=== PATIENT | female | born 1965 | race Hispanic/Latino ===

== ENCOUNTER 2020-05-14 15:46 | Inpatient (IN) | payer BC ==
[~2020-05-14] VITALS: Ht 162.6 cm; Wt 82.6 kg
[2020-05-14 17:14] LABS: BASOPHILS % 0.4 % (0.0-1.0); EOSINOPHILS % 0.2 % (0.0-6.0); HEMATOCRIT 41.1 % (34.2-44.1); HEMOGLOBIN 14.1 g/dL (12.0-16.0); LYMPHOCYTES # (AUTO) 1.4 (1.0-3.2); LYMPHOCYTES % 12.8 % (18.0-39.1); MEAN CORPUSCULAR HGB CONC 34.3 g/dL (31-35); MEAN CORPUSCULAR VOLUME 84.4 fL (81-99); MONOCYTES # (AUTO) 0.9 (0.2-0.8); MONOCYTES % 8.2 % (4.4-11.3); NEUTROPHILS # (AUTO) 8.4 (2.1-6.9); NEUTROPHILS % 77.9 % (38.7-80.0); PLATELET COUNT 245 x10e3/uL (140-360); RED BLOOD COUNT 4.87 x10e6/uL (3.6-5.1); RED CELL DISTRIBUTION WIDTH 13.2 % (11.7-14.4)
[2020-05-14 17:22] LABS: CLARITY,URINE CLEAR (CLEAR); COLOR,URINE YELLOW (YELLOW); LEUKOCYTE ESTERASE ,URINE NEGATIVE (NEGATIVE); NITRITE,URINE NEGATIVE (NEGATIVE); PROTEIN,URINE DIPSTICK 1+ (NEGATIVE)
[2020-05-14 17:23] LABS: BILIRUBIN,URINE LARGE (NEGATIVE); KETONES,URINE TRACE (NEGATIVE); URINE UROBILINOGEN 1 mg/dL (0.2 - 1)
[2020-05-14 17:25] LABS: BACTERIA,URINE FEW /HPF; EPITHELIAL CELLS,URINE MODERATE /LPF; MUCUS,URINE FEW (RARE)
[2020-05-14 17:33] LABS: ALANINE AMINOTRANSFERASE 603 IU/L (0-55); ALBUMIN 4.2 g/dL (3.5-5.0); ALBUMIN/GLOBULIN RATIO 1.1 (0.8-2.0); ALKALINE PHOSPHATASE 118 IU/L (40-150); AMYLASE 62 U/L (25-125); ANION GAP 17.3 mmol/L (8-16); BLOOD UREA NITROGEN 11 mg/dL (7-26); BUN/CREATININE RATIO 13 (6-25); CALCIUM 10.1 mg/dL (8.4-10.2); CARBON DIOXIDE 23 mmol/L (22-29); CHLORIDE 101 mmol/L (98-107); CREATININE, SERUM 0.88 mg/dL (0.57-1.11); EST GLOMERULAR FILTRATION RATE > 60 ML/MIN (60-); GLUCOSE 124 mg/dL (74-118); LIPASE 25 U/L (8-78); POTASSIUM 3.3 mmol/L (3.5-5.1); SODIUM 138 mmol/L (136-145)
--- NOTE | 2020-05-14 17:53 | Emergency Department Note ---
History of Present Illnes History of Present Illness Chief Complaint: Abdominal Complaints History of Present Illness This is a 55 year old female Chief Complaint Comment DIFFUSE ABD PAIN. SAW DR Aurora TAVAREZ TODAY AND SENT TO ER "FOR A SCAN." PT AAOX4. AMBULATORY. STATES PAIN STARTED THURSDAY AND YESTERDAY "MUCHO" VOMIT, BUT TODAY ONLY ONCE. NO FEVERS. NO DIARRHEA. EQUIP MAINT ENG COMPUTER USED #[id number]. . Historian: Patient Arrival Mode: Car Onset (how long ago): day(s) (2) Location: EPIGASTRIC Quality: DULL Radiation: Denies non-radiation, Denies back, Denies neck, Denies extremity, Denies abdomen, Denies periumbilical, Denies flank, Denies proximal, Denies distal, Denies other Severity: moderate Onset quality: gradual Duration (how long): day(s) (1) Timing of current episode: constant Progression: waxing and waning Chronicity: new Context: Denies recent illness, Denies recent surgery, Denies recent immobilization, Denies recent travel, Denies trauma/injury, Denies new medications, Denies hx of DVT/PE, Denies non-compliance w/ medications, Denies other Relieving factors: none Exacerbating factors: none Associated symptoms: Denies denies other symptoms, Denies confusion, Denies chest pain, Denies cough, Denies diaphoresis, Denies fever/chills, Denies headaches, Denies loss of appetite, Denies malaise, Denies nausea/vomiting, Denies rash, Denies seizure, Denies shortness of breath, Denies syncope, Denies weakness, Denies other Treatments prior to arrival: none (SCOTTIE CASILLAS MD) Past Medical/Family History Physician Review I have reviewed the patient's past medical and family history. Any updates have been documented here. (SCOTTIE CASILLAS MD) Past Medical History Recent Fever: No Clinical Suspicion of Infectio: No New/Unexplained Change in Ment: No Past Medical History: Hypertension Past Surgical History: Hysterectomy, Tubal Ligation, Other Surgery: THYROID (SCOTTIE CASILLAS MD) Social History Smoking Cessation: Never Smoker Counseling Performed: No Alcohol Use: None Any Illegal Drug Use: No Physically hurt or threatened: No (SCOTTIE CASILLAS MD) Other Any Pre-Existing Lines (PICC,: No (SCOTTIE CASILLAS MD) Review of Systems Review of Systems Constitutional: Reports no symptoms EENTM: Reports no symptoms Cardiovascular: Reports no symptoms Respiratory: Reports no symptoms Gastrointestinal: Reports as per HPI Genitourinary: Reports no symptoms Musculoskeletal: Reports no symptoms Integumentary: Reports no symptoms Neurological: Reports no symptoms Psychological: Reports no symptoms Endocrine: Reports no symptoms Hematological/Lymphatic: Reports no symptoms (SCOTTIE CASILLAS MD) Physical Exam Related Data Allergies: Coded Allergies: No Known Allergies (Unverified , 05/14/20) Triage Vital Signs Vital Signs Date Time Temp Pulse Resp B/P (MAP) Pulse Ox O2 Delivery O2 Flow Rate FiO2 05/14/20 16:12 98.6 84 16 157/94 100 Room Air Vital signs reviewed: Yes (SCOTTIE CASILLAS MD) Physical Exam CONSTITUTIONAL Constitutional: Present well-developed, Present well-nourished HENT HENT: Present normocephalic, Present atraumatic, Present oropharynx clear/moist, Present nose normal HENT L/R: Present left ext ear normal, Present right ext ear normal EYES Eyes: Reports PERRL, Reports conjunctivae normal NECK Neck: Present ROM normal PULMONARY Pulmonary: Present effort normal, Present breath sounds normal CARDIOVASCULAR Cardiovascular: Present regular rhythm, Present heart sounds normal, Present capillary refill normal, Present normal rate GASTROINTESTINAL Abdominal: Present soft, Present bowel sounds normal, Present tender (EPIGA STRIC) GENITOURINARY Genitourinary: Present exam deferred SKIN Skin: Present warm, Present dry MUSCULOSKELETAL Musculoskeletal: Present ROM normal NEUROLOGICAL Neurological: Present alert, Present oriented x 3, Present no gross motor or sensory deficits PSYCHOLOGICAL Psychological: Present mood/affect normal, Present judgement normal (SCOTTIE CASILLAS MD) Results Laboratory Result Diagram: 05/14/20 1617 05/14/20 1617 Laboratory Laboratory Tests Test 05/14/20 16:17 White Blood Count 10.80 x10e3/uL (4.8-10.8) Red Blood Count 4.87 x10e6/uL (3.6-5.1) Hemoglobin 14.1 g/dL (12.0-16.0) Hematocrit 41.1 % (34.2-44.1) Mean Corpuscular Volume 84.4 fL (81-99) Mean Corpuscular Hemoglobin 29.0 pg (28-32) Mean Corpuscular Hemoglobin Concent 34.3 g/dL (31-35) Red Cell Distribution Width 13.2 % (11.7-14.4) Platelet Count 245 x10e3/uL (140-360) Neutrophils (%) (Auto) 77.9 % (38.7-80.0) Lymphocytes (%) (Auto) 12.8 % (18.0-39.1) Monocytes (%) (Auto) 8.2 % (4.4-11.3) Eosinophils (%) (Auto) 0.2 % (0.0-6.0) Basophils (%) (Auto) 0.4 % (0.0-1.0) Neutrophils # (Auto) 8.4 (2.1-6.9) Lymphocytes # (Auto) 1.4 (1.0-3.2) Monocytes # (Auto) 0.9 (0.2-0.8) Eosinophils # (Auto) 0.0 (0.0-0.4) Basophils # (Auto) 0.0 (0.0-0.1) Absolute Immature Granulocyte (auto 0.05 x10e3/uL (0-0.1) Urine Color Yellow (YELLOW) Urine Clarity Clear (CLEAR) Urine pH 6 (5 - 7) Urine Specific [place] 1.015 (1.010-1.025) Urine Protein 1+ (NEGATIVE) Urine Glucose (UA) Negative (NEGATIVE) Urine Ketones Trace (NEGATIVE) Urine Blood Trace (NEGATIVE) Urine Nitrite Negative (NEGATIVE) Urine Bilirubin Large (NEGATIVE) Urine Urobilinogen 1 mg/dL (0.2 - 1) Urine Leukocyte Esterase Negative (NEGATIVE) Urine RBC 6-10 /HPF (0-5) Urine WBC 6-10 /HPF (0-5) Urine Epithelial Cells Moderate /LPF (NONE) Urine Bacteria Few /HPF (NONE) Urine Mucus Few (RARE) Sodium Level 138 mmol/L (136-145) Potassium Level 3.3 mmol/L (3.5-5.1) Chloride Level 101 mmol/L (98-107) Carbon Dioxide Level 23 mmol/L (22-29) Anion Gap 17.3 mmol/L (8-16) Blood Urea Nitrogen 11 mg/dL (7-26) Creatinine 0.88 mg/dL (0.57-1.11) Estimat Glomerular Filtration Rate > 60 ML/MIN (60-) BUN/Creatinine Ratio 13 (6-25) Glucose Level 124 mg/dL (74-118) Calcium Level 10.1 mg/dL (8.4-10.2) Total Bilirubin 4.8 mg/dL (0.2-1.2) Aspartate Amino Transf (AST/SGOT) 571 IU/L (5-34) Alanine Aminotransferase (ALT/SGPT) 603 IU/L (0-55) Alkaline Phosphatase 118 IU/L (40-150) Total Protein 8.2 g/dL (6.5-8.1) Albumin 4.2 g/dL (3.5-5.0) Globulin 4.0 g/dL (2.3-3.5) Albumin/Globulin Ratio 1.1 (0.8-2.0) Amylase Level 62 U/L (25-125) Lipase 25 U/L (8-78) Lab results reviewed: Yes (SCOTTIE CASILLAS MD) Imaging Imaging results reviewed: Yes (SCOTTIE CASILLAS MD) Imaging results reviewed: Yes Impressions Procedure: [id number] CT/CT ABDOMEN/PELVIS W Exam Date: 05/14/20 Exam Time: 1800 REPORT STATUS: Signed EXAM: CT Abdomen and Pelvis WITH contrast INDICATION: Abdominal pain. COMPARISON: Same day ultrasound of the abdomen. TECHNIQUE: Abdomen and pelvis were scanned utilizing a multidetector helical scanner from the lung base to the pubic symphysis after administration of IV contrast. Coronal and sagittal reformations were obtained. Routine protocol was performed. Scan was performed when during portal venous phase. IV CONTRAST: 100 mL of Isovue 370 ORAL CONTRAST: None COMPLICATIONS: None RADIATION DOSE: Total DLP: 609.80 mGy*cm Estimated effective dose: (DLP x 0.015 x size factor) mSv CTDIvol has been reviewed. It is below the limits set by the Radiation Protocol Committee (RPC). Dose modulation, iterative reconstruction, and/or weight based adjustment of the mA/kV was utilized to reduce the radiation dose to as low as reasonably achievable. FINDINGS: LINES and TUBES: None. LOWER THORAX: Unremarkable HEPATOBILIARY: Diffusely hypodense parenchyma. No focal hepatic lesions. No biliary ductal dilation. GALLBLADDER: There is a large gallstone which measures approximately 3.1 x 2.2 cm within the body of the gallbladder. The additional stone seen on recent ultrasound is not visualized by CT. No wall thickening. SPLEEN: No splenomegaly. PANCREAS: No focal masses or ductal dilatation. ADRENALS: No adrenal nodules. KIDNEYS/URETERS: Kidneys enhance symmetrically. No hydronephrosis. No cystic or solid mass lesions. No stones. GI TRACT: There is diverticulosis coli without evidence of active inflammation. No abnormal distention, wall thickening, or evidence of bowel obstruction. Appendix is normal. PELVIC ORGANS/BLADDER: Unremarkable. LYMPH NODES: No lymphadenopathy. VESSELS: Unremarkable. PERITONEUM / RETROPERITONEUM: No free air or fluid. BONES: Unremarkable. SOFT TISSUES: Unremarkable. IMPRESSION: 1. Cholelithiasis without evidence of cholecystitis. 2. Hepatic steatosis. 3. Diverticulosis coli without evidence of active inflammation. Signed by: Rosalinda De La Garza MD on 05/14/2020 7:35 PM Dictated By: ROSALINDA DE LA GARZA MD 34 Transcribed By: ZULEMA on 05/14/201934 COPY TO: SCOTTIE CASILLAS MD~ (ELIDA LEIGH MD) Assessment & Plan Medical Decision Making MDM GALL STONES GASTRITIS APPENDICITIS (SCOTTIE CASILLAS MD) MDM I SPOKE WITH DR DALY, DR Aurora TAVAREZ, AND DR RIVERA, ADMIT INPATIENT (ELIDA LEIGH MD) Assessment & Plan Final Impression: (1) Abdominal pain (SCOTTIE CASILLAS MD) Final Impression: (1) Abdominal pain (2) Biliary calculus with obstruction without cholecystitis (ELIDA LEIGH MD) Depart Disposition: ADMITTED Last Vital Signs Date Time Temp Pulse Resp B/P (MAP) Pulse Ox O2 Delivery O2 Flow Rate FiO2 05/14/20 16:12 98.6 84 16 157/94 100 Room Air (SCOTTIE CASILLAS MD) SCOTTIE CASILLAS MD May 14, 2020 17:53 ELIDA LEIGH MD May 14, 2020 20:07
[2020-05-14] MEDS ORDERED: IOPAMIDOL 370 MG/ML 200 ML INFUS..BTL INJ ONE (18:06)
[2020-05-14] MEDS ORDERED: SODIUM CHLORIDE 0.9% 50ML 50 ML ONE (18:06)
--- NOTE | 2020-05-14 18:31 | Diagnostic Imaging Report ---
EXAM: Right Upper Quadrant Ultrasound with Doppler INDICATION: Right upper quadrant abdominal pain. COMPARISON: None. TECHNIQUE: Transverse and longitudinal images of the right upper abdomen were obtained. Grayscale, color Doppler and spectral waveform analysis of the hepatic vasculature and splenic vein were performed. FINDINGS: Liver: Size: 12.1 cm in the right midclavicular line, normal Appearance: Normal echogenicity, smooth contour Mass: No focal masses Gallbladder: Stones/Sludge: There are 2 nonmobile tones within the gallbladder, one in the neck measuring 2.3 cm and the other in the fundus measuring 1.6 cm. Wall: 0.4 cm Appearance: No pericholecystic fluid or hydrops. Sonographic Parikh's Sign: Negative Bile Ducts: Intrahepatic Ducts: No dilatation Extrahepatic Ducts: Common bile duct measures 0.6 cm, no dilatation Pancreas: Visualized portions of the pancreatic head, neck and proximal body are normal. Right Kidney: Size: 10.6 x 4.9 x 5.2 cm Echogenicity: Normal Parenchymal thickness: Normal Collecting system: No hydronephrosis Stones: None Cyst/Mass: None Vessels: Main Portal Vein: Diameter: 0.9 cm, normal. Normal flow direction. Aorta: Visualized portions are normal Inferior Vena Cava: Visualized portions are normal Free Fluid: No ascites or pleural effusion IMPRESSION: Cholelithiasis without sonographic evidence of acute cholecystitis. Signed by: Tracie Asencio MD on 05/14/2020 6:27 PM
--- NOTE | 2020-05-14 19:39 | Diagnostic Imaging Report ---
EXAM: CT Abdomen and Pelvis WITH contrast INDICATION: Abdominal pain. COMPARISON: Same day ultrasound of the abdomen. TECHNIQUE: Abdomen and pelvis were scanned utilizing a multidetector helical scanner from the lung base to the pubic symphysis after administration of IV contrast. Coronal and sagittal reformations were obtained. Routine protocol was performed. Scan was performed when during portal venous phase. IV CONTRAST: 100 mL of Isovue 370 ORAL CONTRAST: None COMPLICATIONS: None RADIATION DOSE: Total DLP: 609.80 mGy*cm Estimated effective dose: (DLP x 0.015 x size factor) mSv CTDIvol has been reviewed. It is below the limits set by the Radiation Protocol Committee (RPC). Dose modulation, iterative reconstruction, and/or weight based adjustment of the mA/kV was utilized to reduce the radiation dose to as low as reasonably achievable. FINDINGS: LINES and TUBES: None. LOWER THORAX: Unremarkable HEPATOBILIARY: Diffusely hypodense parenchyma. No focal hepatic lesions. No biliary ductal dilation. GALLBLADDER: There is a large gallstone which measures approximately 3.1 x 2.2 cm within the body of the gallbladder. The additional stone seen on recent ultrasound is not visualized by CT. No wall thickening. SPLEEN: No splenomegaly. PANCREAS: No focal masses or ductal dilatation. ADRENALS: No adrenal nodules. KIDNEYS/URETERS: Kidneys enhance symmetrically. No hydronephrosis. No cystic or solid mass lesions. No stones. GI TRACT: There is diverticulosis coli without evidence of active inflammation. No abnormal distention, wall thickening, or evidence of bowel obstruction. Appendix is normal. PELVIC ORGANS/BLADDER: Unremarkable. LYMPH NODES: No lymphadenopathy. VESSELS: Unremarkable. PERITONEUM / RETROPERITONEUM: No free air or fluid. BONES: Unremarkable. SOFT TISSUES: Unremarkable. IMPRESSION: 1. Cholelithiasis without evidence of cholecystitis. 2. Hepatic steatosis. 3. Diverticulosis coli without evidence of active inflammation. Signed by: Tracie Asencio MD on 05/14/2020 7:35 PM
[2020-05-14] MEDS ORDERED: ONDANSETRON HCL INJ 2MG/ML 2ML 2 MG/ML VIAL IV PRN (20:15)
--- NOTE | 2020-05-14 20:30 | NUR ---
Pt admitted to room 213 via WC from home. Pt c/o worsening abdominal x4 days. Pt alert and oriented to name, hospital, time, and diagnosis: abd pain and biliary calculus. Pt ambulatory with steady gait. Pt skin warm and intact. Lungs CTA. Last BM 05/14. Denies dysuria, urine clear and yellow. Pt oriented to room, call light within reach. Bed low and locked.
[2020-05-14] MEDS ORDERED: PIPER-TAZ 3.375 GM / NS 50ML IV SCH (22:00)
[2020-05-14] MEDS ORDERED: BENICAR20 MG PO (23:52)
[2020-05-14 23:53] VITALS: BP 128/85
[2020-05-14 23:54] VITALS: BP 128/85
[2020-05-15] MEDS ORDERED: ACETAMINOPHEN 325 MG TAB PO PRN
[2020-05-15] MEDS ORDERED: METRONIDAZOLE 500MG/NS 100ML 100 ML IV SCH
[2020-05-15] MEDS ORDERED: POTASSIUM CHLORIDE 20MEQ/100ML 200 ML IV ONE
[2020-05-15] MEDS ORDERED: ONDANSETRON HCL INJ 2MG/ML 2ML 2 MG/ML VIAL IV PRN
[2020-05-15] MEDS ORDERED: HYDRALAZINE HCL 20 MG/ML VIAL IV PRN
[2020-05-15] MEDS ORDERED: MELATONIN 5 MG TABLET PO PRN
[2020-05-15] MEDS ORDERED: DOCUSATE SODIUM 100 MG CAP PO PRN
[2020-05-15] MEDS ORDERED: METRONIDAZOLE 500MG/NS 100ML IV SCH
[2020-05-15 00:49] VITALS: BP 132/83
[2020-05-15] MEDS: MORPHINE SULFATE INJ 4 MG/ML INJ 1ML IV PRN (01:15)
[2020-05-15 04:52] VITALS: BP 118/79
[2020-05-15 06:09] LABS: BASOPHILS % 0.2 % (0.0-1.0); EOSINOPHILS # (AUTO) 0.1 (0.0-0.4); EOSINOPHILS % 0.8 % (0.0-6.0); HEMATOCRIT 35.7 % (34.2-44.1); HEMOGLOBIN 12.7 g/dL (12.0-16.0); LYMPHOCYTES # (AUTO) 1.2 (1.0-3.2); LYMPHOCYTES % 14.7 % (18.0-39.1); MEAN CORPUSCULAR HEMOGLOBIN 30.7 pg (28-32); MEAN CORPUSCULAR HGB CONC 35.6 g/dL (31-35); MEAN CORPUSCULAR VOLUME 86.2 fL (81-99); MONOCYTES # (AUTO) 0.5 (0.2-0.8); MONOCYTES % 5.7 % (4.4-11.3); NEUTROPHILS # (AUTO) 6.6 (2.1-6.9); NEUTROPHILS % 78.2 % (38.7-80.0); PLATELET COUNT 187 x10e3/uL (140-360); RED BLOOD COUNT 4.14 x10e6/uL (3.6-5.1); RED CELL DISTRIBUTION WIDTH 13.2 % (11.7-14.4)
[2020-05-15 06:28] LABS: ALANINE AMINOTRANSFERASE 735 IU/L (0-55); ALBUMIN 3.4 g/dL (3.5-5.0); ALBUMIN/GLOBULIN RATIO 0.9 (0.8-2.0); ALKALINE PHOSPHATASE 113 IU/L (40-150); AMYLASE 2217 U/L (25-125); ANION GAP 13.6 mmol/L (8-16); BLOOD UREA NITROGEN 11 mg/dL (7-26); BUN/CREATININE RATIO 13 (6-25); CARBON DIOXIDE 26 mmol/L (22-29); CHLORIDE 104 mmol/L (98-107); CREATININE, SERUM 0.84 mg/dL (0.57-1.11); EST GLOMERULAR FILTRATION RATE > 60 ML/MIN (60-); GLUCOSE 135 mg/dL (74-118); POTASSIUM 3.6 mmol/L (3.5-5.1); SODIUM 140 mmol/L (136-145)
[2020-05-15] MEDS: PIPER-TAZ 3.375 GM 50 ML IV SCH ×4 (06:30→22:00)
--- NOTE | 2020-05-15 07:00 | NUR ---
The pt. is in bed awake at bedside rounding. She denies pain or discomfort at this time. She is maintained n p o for MRCP.
[2020-05-15 07:47] VITALS: BP 120/91
[2020-05-15 08:02] LABS: LIPASE 4669 U/L (8-78)
[2020-05-15 08:24] VITALS: BP 120/91
[2020-05-15] MEDS: SODIUM CHLORIDE 0.9% 1000ML 1,000 ML IV SCH ×3 (12:45→14:00)
[2020-05-15 13:34] VITALS: BP 122/78
--- NOTE | 2020-05-15 15:41 | Diagnostic Imaging Report ---
MRI MRCP WO HISTORY: ^ELEVATED LFTS COMPARISON: CT abdomen and pelvis 05/14/2020 TECHNIQUE: MRI of the abdomen with exam tailored to evaluate the biliary tree and the pancreas was performed without gadolinium contrast. Multiplanar, multisequence images, including heavily T2-weighted MRCP sequences were obtained. FINDINGS: Hepatobiliary Findings: Bile ducts: Normal in caliber with no intraluminal filling defects. No strictures or dilated intra- or extrahepatic bile ducts. Liver: Severe signal loss on opposed phase imaging. Gallbladder: A singular large gallstone at the gallbladder neck. Mild gallbladder wall thickening/pericholecystic fluid. Suggestion of some sludge or other debris at the fundus. Pancreas: No pancreatic mass identified. No pancreatic ductal dilation. No intrapancreatic fluid collection. There is some fat stranding and free fluid about the tail of the pancreas Additional Findings: Lung bases: Unremarkable. Spleen: Unremarkable Adrenals: Unremarkable Kidneys and ureters: Subcentimeter left renal cyst, otherwise unremarkable. Bowel: Unremarkable. Lymph nodes: Unremarkable. Peritoneum: Small ascites in the left half of the abdomen dependently Vessels: Unremarkable Abdominal wall: Pericentimeter cyst in the left breast. Bones: Unremarkable. IMPRESSION: 1. Cholelithiasis. No choledocholithiasis or any significant intra or extrahepatic biliary ductal dilation. Mild gallbladder wall thickening/mild pericholecystic fluid, could be related to cholecystitis versus chronic liver disease or a number of other causes of gallbladder wall thickening. 2. Severe hepatic steatosis. 3. Fat stranding about the tail of the pancreas and in the left half of the abdomen dependently, correlate with serum lipase for pancreatitis. No intrapancreatic fluid collection and no loculated fluid collections. Signed by: Marcial Vides MD on 05/15/2020 3:38 PM
[2020-05-15 15:56] VITALS: BP 111/68
--- NOTE | 2020-05-15 17:00 | NUR ---
Dr. Winkler rounded and the pt. is to be kept n p o due to pancreatitis.
[2020-05-15] MEDS ORDERED: SODIUM CHLORIDE 0.9% 250ML 250 ML ONE (21:07)
[2020-05-16] VITALS (7 sets, daily range): BP systolic 111–136; BP diastolic 71–84
[2020-05-16] MEDS: SODIUM CHLORIDE 0.9% 1000ML 1,000 ML IV SCH (00:21)
[2020-05-16] MEDS: ENOXAPARIN SOD INJ 40 MG/0.4 ML SYR SC SCH ×2 (00:21→16:41)
[2020-05-16] MEDS: LACTATED RINGER'S 1,000 ML INJ SCH ×5 (01:00→21:22)
--- NOTE | 2020-05-16 02:32 | History and Physical ---
The patient was seen and evaluated approximately 10:15 this morning with the nursing staff. CHIEF COMPLAINT: Elevated LFTs. HISTORY OF PRESENT ILLNESS: This is a 55-year-old female, who was sent then by her GI specialist as a direct admission due to elevated LFTs. The patient presented to the ER, noted to have elevated LFT and was admitted for further evaluation and management. GI was consulted. The patient reports having some mild epigastric abdominal pain ongoing for the last 4-5 days. She was found to have elevated LFTs and was told to come into the emergency room for further evaluation and management. The patient seen and evaluated at bedside, currently doing well with no other issues at this time. REVIEW OF SYSTEMS: Pertinent positives; epigastric abdominal pain, nausea. The rest of the 14-point review of systems have been reviewed with the patient and are negative. ALLERGIES: NO KNOWN DRUG ALLERGIES. HOME MEDICATIONS: Benicar 20 mg daily. PAST MEDICAL HISTORY: Hypertension. PAST SURGICAL HISTORY: Reports none. FAMILY HISTORY: Hypertension, diabetes. SOCIAL HISTORY: No drugs. No alcohol. Does not smoke. Good social support. She has children. PHYSICAL EXAMINATION: VITAL SIGNS: Temperature is 97.6, pulse 67, respiratory rate 20, blood pressure 111/60, pulse ox 97% on room air. GENERAL: Not in acute distress, alert and oriented x3. Cooperative on examination. HEENT: Head is normocephalic and atraumatic. Eyes; pupils are equal, round, and reactive to light bilaterally. Extraocular movements are intact bilaterally. Throat, no evidence of any erythema or exudates in the posterior pharynx. Has poor dentition. NECK: Supple. Good range of motion. PULMONARY: Clear to auscultation bilaterally. No wheezing, rales, or rhonchi. No crackles appreciated. CARDIOVASCULAR: Positive S1 and S2. No murmurs, rubs, or gallops appreciated. ABDOMEN: Soft, nondistended. She did have mild tender to palpation in the epigastric region. She does have positive bowel sounds. No rebound. No guarding. MUSCULOSKELETAL: Strength is 5/5 throughout. . No evidence of any muscle deficits on examination. No weakness appreciated. NEUROLOGIC: Cranial nerve II through XII grossly intact. No evidence of any neurological deficits on exam. SKIN: Intact. Warm to touch. Good cap refill. PSYCHIATRIC: Normal affect and mood. EXTREMITIES: No edema. Good range of motion throughout LABORATORY FINDINGS: White count 8.4, hemoglobin 12.7, hematocrit 35.7, platelets of 187. Chemistry; sodium 140, potassium 3.6, chloride 104, bicarb 26, anion gap of 13, BUN is 11, creatinine 0.84, glucose is 135, calcium is 9, total bilirubin is 5.7, AST 561, ALT 735, alk phos 113, total protein 7, albumin 3.4. Lipase level was 4669. Amylase level was 2217. Urinalysis noted to have a possible underlying UTI. Serology, coronavirus pending. Microbiology, none. IMAGING STUDIES: Abdominal ultrasound shows cholelithiasis without sonographic evidence of acute cholecystitis. CT abdomen and pelvis shows cholelithiasis without evidence of cholecystitis. Hepatic steatosis. Diverticulosis coli with no evidence of acute inflammation. MRCP performed shows cholelithiasis. No choledocholithiasis or any significant intra or extrahepatic biliary ductal dilatation. Mild gallbladder wall thickening, mild pericholecystic fluid, could be related to cholecystitis versus chronic liver disease or number of other causes with gallbladder wall thickening. Severe hepatic steatosis. Fat stranding about the tail of the pancreas in the left half of the abdomen dependently correlate with serum lipase and pancreatitis. The intrahepatic fluid collection and with no loculated fluid collection. IMPRESSION: 1. Elevated transaminases. 2. Acute pancreatitis. 3. Epigastric abdominal pain with associated nausea. 4. Hypertension. PLAN: At this time, imaging studies were noted. MRCP shows no evidence of choledocholithiasis. There is some concern for possible cholecystitis, which I will go ahead and discuss that with the GI specialist. I will go ahead and order a HIDA scan. Keep n.p.o., IV fluids, pain control. There is no evidence of any fluid around the pancreas or any kind of loculations. Resume same home medications. Get lipid panel, A1c, CBC, and CMP in the morning. Lovenox for DVT prophylaxis. Encourage ambulation. MD ADRIANA De Paz/ERMIAS /[id number]
[2020-05-16 04:59] LABS: BASOPHILS % 0.5 % (0.0-1.0); EOSINOPHILS # (AUTO) 0.2 (0.0-0.4); EOSINOPHILS % 2.5 % (0.0-6.0); HEMOGLOBIN 11.6 g/dL (12.0-16.0); LYMPHOCYTES # (AUTO) 1.8 (1.0-3.2); LYMPHOCYTES % 28.1 % (18.0-39.1); MEAN CORPUSCULAR HEMOGLOBIN 28.8 pg (28-32); MEAN CORPUSCULAR HGB CONC 33.1 g/dL (31-35); MEAN CORPUSCULAR VOLUME 86.8 fL (81-99); MONOCYTES # (AUTO) 0.4 (0.2-0.8); MONOCYTES % 6.3 % (4.4-11.3); NEUTROPHILS # (AUTO) 4.1 (2.1-6.9); NEUTROPHILS % 62.3 % (38.7-80.0); PLATELET COUNT 172 x10e3/uL (140-360); RED BLOOD COUNT 4.03 x10e6/uL (3.6-5.1); RED CELL DISTRIBUTION WIDTH 13.4 % (11.7-14.4)
[2020-05-16 05:20] LABS: ALANINE AMINOTRANSFERASE 512 IU/L (0-55); ALBUMIN 2.9 g/dL (3.5-5.0); ALBUMIN/GLOBULIN RATIO 0.9 (0.8-2.0); ALKALINE PHOSPHATASE 98 IU/L (40-150); AMYLASE 349 U/L (25-125); ANION GAP 12.6 mmol/L (8-16); BLOOD UREA NITROGEN 13 mg/dL (7-26); BUN/CREATININE RATIO 15 (6-25); CARBON DIOXIDE 24 mmol/L (22-29); CHLORIDE 112 mmol/L (98-107); CREATININE, SERUM 0.88 mg/dL (0.57-1.11); EST GLOMERULAR FILTRATION RATE > 60 ML/MIN (60-); GLUCOSE 83 mg/dL (74-118); POTASSIUM 3.6 mmol/L (3.5-5.1); SODIUM 145 mmol/L (136-145)
[2020-05-16] MEDS: PIPER-TAZ 3.375 GM 50 ML IV SCH ×3 (06:00→21:22)
[2020-05-16 06:26] LABS: CHOL/HDL RATIO 2.8 (3.0-3.6)
--- NOTE | 2020-05-16 07:20 | NUR ---
The pt. is in bed awake and alert. Denies pain or discomfort at this time. She is maintained n p o.
--- NOTE | 2020-05-16 16:30 | NUR ---
The pt. is out of the room for URIEL suggs.
[2020-05-16] MEDS: MORPHINE SULFATE INJ 4 MG/ML INJ 1ML IV PRN (18:30)
--- NOTE | 2020-05-16 18:32 | NUR ---
Nuc Med requests morphine for Hida scan completion and med given.
--- NOTE | 2020-05-16 18:33 | NUR ---
The pt. requests iv site change for convenience and attempt made unsuccessfully. Will defer to the oncoming shift.
--- NOTE | 2020-05-16 19:05 | NUR ---
The pt. returned to the unit from [facility].
--- NOTE | 2020-05-16 20:04 | Diagnostic Imaging Report ---
EXAM: HIDA Scan with Morphine Challenge INDICATION: Abdominal pain; elevated LFTs Report: Following the administration of 5.5 mCi of Tc-99m mebrofenin, dynamic images of the abdomen in the anterior projection were obtained through 60 minutes. Morphine sulfate 3 mg was administered intravenously and additional images were obtained through 30 minutes. Perfusion of the liver is normal. Extraction of tracer from the blood pool by the liver parenchyma is normal. Tracer appears promptly with in the biliary tract. Tracer is seen in the small bowel by 40 minutes post injection of the tracer. The gallbladder does not fill during the initial 60 minutes of imaging but does fill promptly following administration of morphine. Impression: 1. Filling of the gallbladder excludes acute cystic duct obstruction/acute cholecystitis. 2. Delayed filling of the gallbladder (after 1 hour) is consistent with chronic cholecystitis. Signed by: Dr. Bailey Russ M.D. on 05/16/2020 8:01 PM
--- NOTE | 2020-05-16 23:54 | NUR ---
Call from Dr Winkler, new orders received.
[2020-05-17] VITALS (7 sets, daily range): BP systolic 128–152; BP diastolic 72–85
--- NOTE | 2020-05-17 01:06 | Progress Note ---
DATE: 05/16/2020 Medicine Progress Note SUBJECTIVE: The patient was seen and evaluated at approximately 1:00 p.m. this afternoon. I spoke with GI, the patient to be scheduled for a cholecystectomy tomorrow. She will also get a cholangiogram tomorrow. PHYSICAL EXAMINATION: VITAL SIGNS: Temperature is 98.5, pulse 65, respiratory rate is 18, blood pressure 133/82, pulse ox 100% on room air. GENERAL: Not in acute distress. Alert and oriented x3. Cooperative on examination. HEENT: Head is normocephalic and atraumatic. Eyes; pupils are equal, round, and reactive to light bilaterally. Extraocular movements are intact bilaterally. Throat; no evidence of any erythema or exudates in the posterior pharynx. Has poor dentition. NECK: Supple. Good range of motion. PULMONARY: Clear to auscultation bilaterally. No wheezing, rales, or rhonchi. No crackles appreciated. CARDIOVASCULAR: Positive S1 and S2. No murmurs, rubs, or gallops appreciated. ABDOMEN: Soft, nondistended, and nontender to palpation. Bowel sounds present. MUSCULOSKELETAL: Strength is 5/5 throughout. No evidence of any muscle deficits on examination. NEUROLOGIC: Cranial nerves 2 through 12 grossly intact. No evidence of any neurological deficits on exam. SKIN: Intact. Warm to touch. Good cap refill. PSYCHIATRIC: Normal affect and mood. EXTREMITIES: No edema. Good range of motion throughout. LABORATORY FINDINGS: Show white count 6.5, hemoglobin 11.6, hematocrit 35, platelets of 172. Chemistry; sodium 145, potassium 3.6, chloride 112, bicarb 24, anion gap of 12, BUN is 13, creatinine is 0.88. Her total bilirubin is 1.5, AST 187, ALT 512, alkaline phosphatase 98, albumin was 2.9. The lipase did downtrend to 320. LDL was 90. Coronavirus is not detected. IMAGING STUDIES: Nothing new. IMPRESSION: 1. Elevated transaminases. 2. Acute pancreatitis. 3. Biliary dyskinesia with chronic cholecystitis. 4. Epigastric abdominal pain with associated nausea. 5. Hypertension. PLAN: At this time, I spoke with GI. The patient will get a laparoscopic cholecystectomy tomorrow with a cholangiogram. Continue with IV fluids, n.p.o., pain control. Get a.m. labs. Lovenox for DVT prophylaxis. We will continue to monitor very closely. MD ADRIANA De Paz/ERMIAS /[id number]
[2020-05-17] MEDS: LACTATED RINGER'S 1,000 ML INJ SCH ×2 (03:48→06:16)
[2020-05-17 06:10] LABS: BASOPHILS % 0.4 % (0.0-1.0); EOSINOPHILS # (AUTO) 0.1 (0.0-0.4); EOSINOPHILS % 1.2 % (0.0-6.0); HEMATOCRIT 32.3 % (34.2-44.1); HEMOGLOBIN 11.1 g/dL (12.0-16.0); LYMPHOCYTES # (AUTO) 1.9 (1.0-3.2); LYMPHOCYTES % 24.9 % (18.0-39.1); MEAN CORPUSCULAR HGB CONC 34.4 g/dL (31-35); MEAN CORPUSCULAR VOLUME 87.3 fL (81-99); MONOCYTES # (AUTO) 0.5 (0.2-0.8); MONOCYTES % 6.9 % (4.4-11.3); NEUTROPHILS # (AUTO) 4.9 (2.1-6.9); NEUTROPHILS % 66.3 % (38.7-80.0); PLATELET COUNT 161 x10e3/uL (140-360); RED CELL DISTRIBUTION WIDTH 13.2 % (11.7-14.4)
[2020-05-17] MEDS: PIPER-TAZ 3.375 GM 50 ML IV SCH ×3 (06:16→20:56)
[2020-05-17 06:37] LABS: ALANINE AMINOTRANSFERASE 337 IU/L (0-55); ALBUMIN 2.9 g/dL (3.5-5.0); ALBUMIN/GLOBULIN RATIO 0.9 (0.8-2.0); ALKALINE PHOSPHATASE 93 IU/L (40-150); ANION GAP 15.5 mmol/L (8-16); BLOOD UREA NITROGEN 11 mg/dL (7-26); BUN/CREATININE RATIO 15 (6-25); CALCIUM 8.9 mg/dL (8.4-10.2); CARBON DIOXIDE 21 mmol/L (22-29); CHLORIDE 110 mmol/L (98-107); CREATININE, SERUM 0.74 mg/dL (0.57-1.11); EST GLOMERULAR FILTRATION RATE > 60 ML/MIN (60-); GLUCOSE 76 mg/dL (74-118); POTASSIUM 3.5 mmol/L (3.5-5.1); SODIUM 143 mmol/L (136-145)
--- NOTE | 2020-05-17 06:46 | NUR ---
Received bedside shift report from night nurse. Patient is in stable condition, resting in bed. No acute distress noted. Call light within reach. Bed in the lowest position.
[2020-05-17 07:02] LABS: AMYLASE 111 U/L (25-125); LIPASE 69 U/L (8-78)
[2020-05-17] MEDS ORDERED: IOPAMIDOL 300MG/ML 50ML INFUS..BTL IV ONE (09:49)
[2020-05-17] MEDS ORDERED: BUPIVACAINE 0.25%/EPI 30ML SDV INJ ONE (09:49)
--- NOTE | 2020-05-17 11:20 | NUR ---
PATIENT OFF UNIT FOR PROCEDURE AT THIS TIME.
--- NOTE | 2020-05-17 14:08 | Diagnostic Imaging Report ---
OR Fluoroscopy: IMPRESSION: Fluoroscopy service provided in the OR. Interpretation not requested. Signed by: Tobi Garcia MD on 05/17/2020 2:05 PM
[2020-05-17] MEDS ORDERED: PANTOPRAZOLE 40 MG 10ML VIAL IV SCH (14:30)
[2020-05-17] MEDS ORDERED: ONDANSETRON HCL INJ 2MG/ML 2ML 2 MG/ML VIAL ONE (14:57)
[2020-05-17] MEDS ORDERED: NEOSTIGMINE 1 MG/ML 10ML VIAL ONE (14:57)
[2020-05-17] MEDS ORDERED: SEVOFLURANE INHAL SOLN 250 ML PEN BTL ONE (14:57)
[2020-05-17] MEDS ORDERED: LIDOCAINE HCL 2% LOCAL INJ 5 ML SDV VIAL INJ ONE (14:57)
[2020-05-17] MEDS ORDERED: DEXAMETHASONE SOD PHOS INJ 4 MG/ML VIAL ONE (14:57)
[2020-05-17] MEDS ORDERED: ETOMIDATE 2 MG/ML 10 ML INJ IV ONE (14:57)
[2020-05-17] MEDS ORDERED: GLYCOPYRROLATE INJ 0.2 MG/ML VIAL ONE (14:57)
[2020-05-17] MEDS ORDERED: PROPOFOL IV EMULSION 10 MG/ML 20 ML VIAL ONE (14:57)
[2020-05-17] MEDS ORDERED: ROCURONIUM BROMIDE 10 MG/ML 5ML VIAL IV ONE (14:57)
[2020-05-17] MEDS ORDERED: KETOROLAC TROMETHAMINE 30 MG/ML VIAL ONE (14:57)
--- NOTE | 2020-05-17 15:10 | NUR ---
PATIENT BACK TO UNIT AT THIS TIME. SHE IS IN STABLE CONDITION.
--- NOTE | 2020-05-17 15:39 | Operative Report ---
DATE OF PROCEDURE: 05/17/2020 SURGEON: Brett Winkler MD PREOPERATIVE DIAGNOSES: Cholecystitis, cholelithiasis, and gallstone pancreatitis, rule out common bile duct stone. POSTOPERATIVE DIAGNOSES: Cholecystitis, cholelithiasis, and gallstone pancreatitis, rule out common bile duct stone. No common bile duct stones. OPERATIONS PERFORMED: Laparoscopic cholecystectomy and intraoperative cholangiogram. SQUIRREL MAN: 1. Juanpablo Winkler MD. 2. KATE Sawyer. ANESTHESIA: General. COMPLICATIONS: None. ESTIMATED BLOOD LOSS: Minimal. DESCRIPTION OF PROCEDURE: With the patient lying in bed in the supine position under good general endotracheal anesthesia, the abdomen was prepped with Betadine solution and draped in the usual manner. A Veress needle was introduced into the umbilicus and pneumoperitoneum was established without any difficulty. An 11 mm trocar was placed into the umbilicus and a 10 mm video laparoscope was placed into the intraabdominal cavity. Under direct vision, three 5 mm trocars were placed in the right subcostal region. Video laparoscopy at this point, revealed a thick-walled distended gallbladder that had adhesions to the lower half, there was also some fatty infiltration of the liver. The rest of the abdominal exploration appeared to be within normal limits. The adhesions of the gallbladder were then slowly and carefully taken down, the peritoneum overlying the neck of the gallbladder was then opened, and the cystic duct was identified. The cystic duct was followed to its junction with the common duct. The cystic duct was then circumferentially dissected away from the common duct. The cystic duct was rather thickened and enlarged. A clip was placed at the neck of the gallbladder. An opening was made into the cystic duct, the cholangiogram catheter was then introduced into the cystic duct. Due to the large size of the cystic duct consistent with the patient having passed the stone, it was technically difficult to do the cholangiogram, nonetheless we managed to inject dye into the biliary tree and this show free flow dye into the duodenum. No retained common duct stones in the common duct. We could not well visualize the intrahepatic radicles, otherwise the common duct did not show any retained stones, which was consistent with the fact that the patient has liver function tests that quickly normalized over 24 hours. The cholangiocath was then removed. The cystic duct was divided and then ligated with 0 PDS Endoloop and a clip. The cystic artery was similarly doubly clipped and divided. The gallbladder was then slowly and carefully taken off the liver bed using the cautery scissors. There was a lot of fibrosis and inflammation from the chronic inflammatory process, nonetheless the gallbladder was totally taken off the liver bed and perfect hemostasis was ascertained. The gallbladder was then placed in a pouch and removed through the umbilicus after enlarging the umbilical opening to allow for passage of the inflamed gallbladder. Video laparoscopy was then again carried out, the liver bed was found to be perfectly dry, all of the excess fluid was aspirated. The pneumoperitoneum was evacuated, and all the trocars were removed under direct vision. The midline fascia at the umbilicus was then closed with 2 [id number] of 0 Vicryl. All layers were infiltrated on the way out with solution of 0.25% Marcaine, subcutaneous tissue was approximated with 3-0 Vicryl, and the skin was closed with subcuticular 5-0 Vicryl. Benzoin, Steri-Strips, and Band-Aids were applied. The sponge, lap, and needle counts were correct. The patient tolerated the procedure well and returned to the recovery room in stable condition. MD HAYDEN Jackson/ERMIAS /[id number]
[2020-05-17] MEDS: SODIUM CHLORIDE 0.9% 1000ML 1,000 ML IV SCH (16:12)
[2020-05-17] MEDS: HYDROCODONE/APAP 7.5MG-325MG 1 EA TAB PO PRN (16:19)
--- NOTE | 2020-05-17 19:00 | NUR ---
BEDSIDE SHIFT REPORT GIVEN TO ONCOMING NURSE. PATIENT IS RESTING IN BED, NO S/S OF DISTRESS NOTED. CALL LIGHT WITHIN REACH. BED IN THE LOWEST POSITION.
[2020-05-17] MEDS: MORPHINE SULFATE INJ 4 MG/ML INJ 1ML IV PRN (20:56)
[2020-05-18] VITALS: BP 117/80
--- NOTE | 2020-05-18 00:16 | Progress Note ---
DATE: 05/17/2020 Medicine Progress Note SUBJECTIVE: The patient underwent laparoscopic cholecystectomy. When I came to evaluate her, she was not there, she was in the OR. PHYSICAL EXAMINATION: VITAL SIGNS: Temperature is 97.2, pulse 74, respiratory rate is 18, blood pressure 109/68. She was 98% on room air. The patient was in the OR when I came to evaluate her. I discussed plan of care with nursing staff. LABORATORY DATA: White count 7.4, hemoglobin 11, hematocrit 32, platelets of 161. Chemistry; sodium 143, potassium 3.5, chloride 110, bicarb 29, anion gap of 15, BUN is 11, creatinine is 0.74. LFTs; total bilirubin is 1, AST 72, ALT was 337. IMAGING STUDIES: Had a cholangiogram under fluoro. I did not see the report. IMPRESSION: 1. Elevated transaminases. 2. Acute pancreatitis. 3. Biliary dyskinesia with chronic cholecystitis. 4. Epigastric abdominal pain with associated nausea. 5. Hypertension. PLAN: At this time, the patient was in the OR, receiving a laparoscopic cholecystectomy. She is also getting a cholangiogram. I spoke with the nurse after the procedure. The patient is doing well with no complaints. She is on a liquid diet. Continue to follow very closely. Get a.m. labs. Follow with the rest of the consultants. MD ADRIANA De Paz/ERMIAS /[id number]
[2020-05-18 04:00] VITALS: BP 133/75
[2020-05-18 05:00] LABS: BASOPHILS % 0.4 % (0.0-1.0); EOSINOPHILS # (AUTO) 0.1 (0.0-0.4); EOSINOPHILS % 0.6 % (0.0-6.0); HEMATOCRIT 31.5 % (34.2-44.1); HEMOGLOBIN 10.7 g/dL (12.0-16.0); LYMPHOCYTES # (AUTO) 2.2 (1.0-3.2); LYMPHOCYTES % 20.4 % (18.0-39.1); MEAN CORPUSCULAR HEMOGLOBIN 29.1 pg (28-32); MEAN CORPUSCULAR VOLUME 85.6 fL (81-99); MONOCYTES # (AUTO) 0.9 (0.2-0.8); MONOCYTES % 7.9 % (4.4-11.3); NEUTROPHILS # (AUTO) 7.6 (2.1-6.9); NEUTROPHILS % 70.2 % (38.7-80.0); PLATELET COUNT 155 x10e3/uL (140-360); RED BLOOD COUNT 3.68 x10e6/uL (3.6-5.1); RED CELL DISTRIBUTION WIDTH 13.3 % (11.7-14.4)
[2020-05-18 05:20] LABS: ALANINE AMINOTRANSFERASE 286 IU/L (0-55); ALBUMIN 2.8 g/dL (3.5-5.0); ALBUMIN/GLOBULIN RATIO 0.8 (0.8-2.0); ALKALINE PHOSPHATASE 82 IU/L (40-150); AMYLASE 48 U/L (25-125); ANION GAP 12.6 mmol/L (8-16); BLOOD UREA NITROGEN 9 mg/dL (7-26); BUN/CREATININE RATIO 11 (6-25); CARBON DIOXIDE 22 mmol/L (22-29); CHLORIDE 110 mmol/L (98-107); CREATININE, SERUM 0.79 mg/dL (0.57-1.11); EST GLOMERULAR FILTRATION RATE > 60 ML/MIN (60-); GLUCOSE 101 mg/dL (74-118); POTASSIUM 3.6 mmol/L (3.5-5.1); SODIUM 141 mmol/L (136-145)
[2020-05-18] MEDS: HYDROCODONE/APAP 7.5MG-325MG 1 EA TAB PO PRN (05:45)
[2020-05-18] MEDS: PIPER-TAZ 3.375 GM 50 ML IV SCH (06:02)
[2020-05-18] MEDS: SODIUM CHLORIDE 0.9% 1000ML 1,000 ML IV SCH ×2 (06:02→10:30)
[2020-05-18 08:00] VITALS: BP 128/78
[2020-05-18 08:55] VITALS: BP 133/75
[2020-05-18 12:00] VITALS: BP 144/95
[2020-05-18] MEDS ORDERED: ULTRAM50 MG PO (14:29)
--- OUTSIDE RECORDS SUMMARY | 2020-05-18 18:58 | XMS REPORT | Continuity of Care Document ---
Author Author [facility] Organization [facility] Address [address] [place] [address] Phone Unavailable Care Team Providers Care Baggage Agent Name Role Phone Henna DALY Attphys Unavailable Henna DALY Admphys Unavailable Problems This patient has no known problems. Allergies, Adverse Reactions, Alerts This patient has no known allergies or adverse reactions. Medications This patient has no known medications. Procedures This patient has no known procedures. Encounters Start Date/Time End Date/Time [facility] ID Source 2019-10-05 15:57:00 2019-10-05 15:57:00 Outpatient [facility] [address] [facility] Results Test Description Test Time Test Comments Results Result Comments Source CHOLANGIOGRAM INTROP 2020-05-17 14:05:00 [place] [address] Patient Name: RADHA CORTEZ MR #: [id number] : 1965 Age/Sex: 55/F Req #: [id number] [facility] Physician: JOSE DALY MD Ordered by: CLIFFORD DUONG MD Report #: [id number] Location: MED/SURG2 Room/Bed: [facility] Procedure: [id number] DX/CHOLANGIOGRAM INTROP Exam Date: 05/17/20 Exam Time: 1236 REPORT STATUS: Signed OR Fluoroscopy: IMPRESSION: Fluoroscopy service provided in the OR. Interpretation not requested. Signed by: Elias Shah MD on 05/17/2020 2:05 PM Dictated By: ELIAS SHAH MD 04 Transcribed By: ZULEMA on 05/17/201404 COPY TO: CLIFFORD DUONG MD HEPTOBILIARY W PHARM 2020-05-16 19:56:00 [place] [address] Patient Name: RADHA CORTEZ MR #: [id number] : 1965 Age/Sex: 55/F Req #: [id number] [facility] Physician: JOSE DALY MD Ordered by: JOSE DALY MD Report #: [id number] Location: MED/SURG2 Room/Bed: [facility] Procedure: [id number] NM/HEPTOBILIARY W PHARM Exam Date: Exam Time: REPORT STATUS: Signed EXAM: HIDA Scan with Morphine Challenge INDICATION: Abdominal pain; elevated LFTs Report: Following the administration of 5.5 mCi of Tc-99m mebrofenin, dynamic images of the abdomen in the anterior projection were obtained through 60 minutes. Morphine sulfate 3 mg was administered intravenously and additional images were obtained through 30 minutes. Perfusion of the liver is normal. Extraction of tracer from the blood pool by the liver parenchyma is normal. Tracer appears promptly with in the biliary tract. Tracer is seen in the small bowel by 40 minutes post injection of the tracer. The gallbladder does not fill during the initial 60 minutes of imaging but does fill promptly following administration of morphine. Impression: 1. Filling of the gallbladder excludes acute cystic duct obstruction/acute cholecystitis. 2. Delayed filling of the gallbladder (after 1 hour) is consistent with chronic cholecystitis. Signed by: Dr. Freeman Russ M.D. on 05/16/2020 8:01 PM Dictated By: FREEMAN RUSS MD 00 Transcribed By: ZULEMA on 05/16/202000 COPY TO: JOSE DALY MD MRI MRCP WO 2020-05-15 14:36:00 [place] [address] Patient Name: RADHA CORTEZ MR #: [id number] : 1965 Age/Sex: 55/F Req #: [id number] Adm Physician: JOSE DALY MD Ordered by: JOSE DALY MD Report #: [id number] Location: MED/SURG2 Room/Bed: [facility] Procedure: [id number] MRI/MRI MRCP WO Exam Date: Exam Time: REPORT STATUS: Signed MRI MRCP WO HISTORY: ELEVATED LFTS COMPARISON: CT abdomen and pelvis 05/14/2020 TECHNIQUE: MRI of the abdomen with exam tailored to evaluate the biliary tree and the pancreas was performed without gadolinium contrast. Multiplanar, multisequence images, including heavily T2-weighted MRCP sequences were obtained. FINDINGS: Hepatobiliary Findings: Bile ducts: Normal in caliber with no intraluminal filling defects. No strictures or dilated intra- or extrahepatic bile ducts. Liver: Severe signal loss on opposed phase imaging. Gallbladder: A singular large gallstone at the gallbladder neck. Mild gallbladder wall thickening/pericholecystic fluid. Suggestion of some sludge or other debris at the fundus. Pancreas: No pancreatic mass identified. No pancreatic ductal dilation. No intrapancreatic fluid collection. There is some fat stranding and free fluid about the tail of the pancreas Additional Findings: Lung bases: Unremarkable. Spleen: Unremarkable Adrenals: Unremarkable Kidneys and ureters: Subcentimeter left renal cyst, otherwise unremarkable. Bowel: Unremarkable. Lymph nodes: Unremarkable. Peritoneum: Small ascites in the left half of the abdomen dependently Vessels: Unremarkable Abdominal wall: Pericentimeter cyst in the left breast. Bones: Unremarkable. IMPRESSION: 1. Cholelithiasis. No choledocholithiasis or any significant intra or extrahepatic biliary ductal dilation. Mild gallbladder wall thickening/mild pericholecystic fluid, could be related to cholecystitis versus chronic liver disease or a number of other causes of gallbladder wall thickening. 2. Severe hepatic steatosis. 3. Fat stranding about the tail of the pancreas and in the left half of the abdomen dependently, correlate with serum lipase for pancreatitis. No intrapancreatic fluid collection and no loculated fluid collections. Signed by: Keenan Hodge MD on 05/15/2020 3:38 PM Dictated By: KEENAN HODGE MD 1538 Transcribed By: ZULEMA on 05/15/20 1538 COPY TO: JOSE DALY MD CT ABDOMEN/PELVIS W 2020-05-14 19:20:00 [place] [address] Patient Name: RADHA CORTEZ MR #: [id number] : 1965 Age/Sex: 55/F Req #: [id number] Adm Physician: Ordered by: SCOTTIE CASILLAS MD Report #: [id number] Location: ER Room/Bed: Procedure: [id number] CT/CT ABDOMEN/PELVIS W Exam Date: 07/27/20 Exam Time: 1800 REPORT STATUS: Signed EXAM: CT Abdomen and Pelvis WITH contrast INDICATION: Abdominal pain. COMPARISON: Same day ultrasound of the abdomen. TECHNIQUE: Abdomen and pelvis were scanned utilizing a multidetector helical scanner from the lung base to the pubic symphysis after administration of IV contrast. Coronal and sagittal reformations were obtained. Routine protocol was performed. Scan was performed when during portal venous phase. IV CONTRAST: 100 mL of Isovue 370 ORAL CONTRAST: None COMPLICATIONS: None RADIATION DOSE: Total DLP: 609.80 mGy*cm Estimated effective dose: (DLP x 0.015 x size factor) mSv CTDIvol has been reviewed. It is below the limits set by the Radiation Protocol Committee (RPC). Dose modulation, iterative reconstruction, and/or weight based adjustment of the mA/kV was utilized to reduce the radiation dose to as low as reasonably achievable. FINDINGS: LINES and TUBES: None. LOWER THORAX: Unremarkable HEPATOBILIARY: Diffusely hypodense parenchyma. No focal hepatic lesions. No biliary ductal dilation. GALLBLADDER: There is a large gallstone which measures approximately 3.1 x 2.2 cm within the body of the gallbladder. The additional stone seen on recent ultrasound is not visualized by CT. No wall thickening. SPLEEN: No splenomegaly. PANCREAS: No focal masses or ductal dilatation. ADRENALS: No adrenal nodules. KIDNEYS/URETERS: Kidneys enhance symmetrically. No hydronephrosis. No cystic or solid mass lesions. No stones. GI TRACT: There is diverticulosis coli without evidence of active inflammation. No abnormal distention, wall thickening, or evidence of bowel obstruction. Appendix is normal. PELVIC ORGANS/BLADDER: Unremarkable. LYMPH NODES: No lymphadenopathy. VESSELS: Unremarkable. PERITONEUM / RETROPERITONEUM: No free air or fluid. BONES: Unremarkable. SOFT TISSUES: Unremarkable. IMPRESSION: 1. Cholelithiasis without evidence of cholecystitis. 2. Hepatic steatosis. 3. Diverticulosis coli without evidence of active inflammation. Signed by: Rosalinda De La Garza MD on 05/14/2020 7:35 PM Dictated By: ROSALINDA DE LA GARZA MD 34 Transcribed By: ZULEMA on 05/14/201934 COPY TO: SCOTTIE CASILLAS MD US ABDOMEN LIMITED 2020-05-14 18:03:00 [facility] [place] [address] Patient Name: RADHA CORTEZ MR #: [id number] : 1965 Age/Sex: 55/F Req #: [id number] Adm Physician: Ordered by: SCOTTIE CASILLAS MD Report #: [id number] Location: ER Room/Bed: Procedure: [id number] US/US ABDOMEN LIMITED Exam Date: 05/14/20 Exam Time: 1713 REPORT STATUS: Signed EXAM: Right Upper Quadrant Ultrasound with Doppler INDICATION: Right upper quadrant abdominal pain. COMPARISON: None. TECHNIQUE: Transverse and longitudinal images of the right upper abdomen were obtained. Grayscale, color Doppler and spectral waveform analysis of the hepatic vasculature and splenic vein were performed. FINDINGS: Liver: Size: 12.1 cm in the right midclavicular line, normal Appearance: Normal echogenicity, smooth contour Mass: No focal masses Gallbladder: Stones/Sludge: There are 2 nonmobile tones within the gallbladder, one in the neck measuring 2.3 cm and the other in the fundus measuring 1.6 cm. Wall: 0.4 cm Appearance: No pericholecystic fluid or hydrops. Sonographic Parikh's Sign: Negative Bile Ducts: Intrahepatic Ducts: No dilatation Extrahepatic Ducts: Common bile duct measures 0.6 cm, no dilatation Pancreas: Visualized portions of the pancreatic head, neck and proximal body are normal. Right Kidney: Size: 10.6 x 4.9 x 5.2 cm Echogenicity: Normal Parenchymal thickness: Normal Collecting system: No hydronephrosis Stones: None Cyst/Mass: None Vessels: Main Portal Vein: Diameter: 0.9 cm, normal. Normal flow direction. Aorta: Visualized portions are normal Inferior Vena Cava: Visualized portions are normal Free Fluid: No ascites or pleural effusion IMPRESSION: Cholelithiasis without sonographic evidence of acute cholecystitis. Signed by: Rosalinda De La Garza MD on 05/14/2020 6:27 PM Dictated By: ROSALINDA DE LA GARZA MD 26 Transcribed By: ZULEMA on 05/14/201826 COPY TO: SCOTTIE CASILLAS MD
--- OUTSIDE RECORDS SUMMARY | 2020-05-18 19:02 | XMS REPORT | Continuity of Care Document ---
Author Author [facility] Organization [facility] Address [address] [place] [address] Phone Unavailable Care Team Providers Care Bi Application Developer Name Role Phone Henna DALY Attphys Unavailable Henna DALY Admphys Unavailable Problems This patient has no known problems. Allergies, Adverse Reactions, Alerts This patient has no known allergies or adverse reactions. Medications This patient has no known medications. Procedures This patient has no known procedures. Encounters Start Date/Time End Date/Time [facility] Encounter ID Source 2019-10-05 15:57:00 2019-10-05 15:57:00 Outpatient [facility] [address] [facility] Results Test Description Test Time Test Comments Results Result Comments Source CHOLANGIOGRAM INTROP 2020-05-17 14:05:00 [place] [address] Patient Name: RADHA CORTEZ MR #: [id number] : 1965 Age/Sex: 55/F Req #: [id number] [facility] Physician: JOSE DALY MD Ordered by: CLIFFORD DUONG MD Report #: [id number] Location: MED/SURG2 Room/Bed: [facility] Procedure: [id number] DX/CHOLANGIOGRAM INTROP Exam Date: 05/17/20 Exam Time: 1236 REPORT STATUS: Signed OR Fluoroscopy: IMPRESSION: Fluoroscopy service provided in the OR. Interpretation not requested. Signed by: Elias Shah MD on 05/17/2020 2:05 PM Dictated By: ELIAS SHAH MD 04 Transcribed By: ZULEMA on 05/17/201404 COPY TO: CLIFFORD DUONG MD HEPTOBILIARY W PHARM 2020-05-16 19:56:00 [place] [address] Patient Name: RADHA CORTEZ MR #: [id number] : 1965 Age/Sex: 55/F Req #: [id number] [facility] Physician: JOSE DALY MD Ordered by: JOSE DALY MD Report #: [id number] Location: MED/SURG2 Room/Bed: [facility] Procedure: [id number] NM/HEPTOBILIARY W PHARM Exam Date: Exam Time: [...] M.D. on 05/16/2020 8:01 PM Dictated By: FREEAMN RUSS MD 00 Transcribed By: ZULEMA on 05/16/202000 COPY TO: JOSE DALY MD MRI MRCP WO 2020-05-15 14:36:00 [place] [address] Patient Name: RADHA CORTEZ MR #: [id number] : 1965 Age/Sex: 55/F Req #: [id number] Adm Physician: JOSE DALY MD Ordered by: JOSE DALY MD Report #: [id number] Location: MED/SURG2 Room/Bed: [facility] Procedure: [id number] MRI/MRI MRCP WO Exam Date: Exam Time: [...] DALY MD CT ABDOMEN/PELVIS W 2020-05-14 19:20:00 [place] [address] Patient Name: RADHA CORTEZ MR #: [id number] : 1965 Age/Sex: 55/F Req #: [id number] Adm Physician: Ordered by: SCOTTIE CASILLAS MD Report #: [id number] Location: ER Room/Bed: Procedure: [id number] CT/CT ABDOMEN/PELVIS W Exam Date: 07/27/20 Exam [...] US ABDOMEN LIMITED 2020-05-14 18:03:00 [facility] [place] [address] Patient Name: RADHA CORTEZ MR #: [id number] : 1965 Age/Sex: 55/F Req #: [id number] Adm Physician: Ordered by: SCOTTIE CASILLAS MD Report #: [id number] Location: ER Room/Bed: Procedure: [id number] US/US ABDOMEN LIMITED Exam Date: 05/14/20 Exam [...]
--- NOTE | 2020-05-19 01:17 | Discharge Summary ---
FINAL DISCHARGE DIAGNOSES: 1. Acute pancreatitis with elevated transaminases, status post laparoscopic cholecystectomy. 2. Biliary dyskinesia with chronic cholecystitis, status post laparoscopic cholecystectomy. 3. Epigastric abdominal pain secondary to #1, now resolved. 4. Hypertension. CONSULTANTS: General Surgery and GI. PHYSICAL EXAMINATION: VITAL SIGNS: Temperature is 97.6, pulse 67, respiratory rate 20, blood pressure 144/95, and pulse ox 100% on room air. LABORATORY FINDINGS: Show white count 10.7, hemoglobin 10.7, hematocrit is 31, platelets 155. Chemistry; sodium 141, potassium 3.6, chloride 110, bicarb 22, anion gap of 12, BUN is 9 and creatinine 0.79, glucose is 101, calcium is 8. Total bilirubin on admission was 4.8, peaked at 5.7, then downtrended to 1. LFTs on admission 571, downtrended to 74, ALT was 603 on admission peaked at 735 downtrended to 286. LDL was 90. Lipase was 320, initially peaked at 4669, downtrended to 69. Amylase was 48. Urinalysis shows significant urine epithelial cells. Coronavirus was not detected. IMAGING STUDIES: Abdominal ultrasound shows cholelithiasis without sonographic evidence of acute cholecystitis. CT abdomen and pelvis shows cholelithiasis without evidence of cholecystitis. Hepatosteatosis. Diverticulosis coli with no evidence of any active inflammation. HIDA scan concerning for underlying biliary dyskinesia with chronic cholecystitis with a delayed filling defect. MRCP shows cholelithiasis. No choledocholithiasis or extrahepatic biliary ductal dilatation. Mild gallbladder wall thickening. Mild pericholecystic fluid could be secondary to cholecystitis versus a chronic liver disease or number of other causes of gallbladder wall thickening, pain, severe hepatosteatosis. Fat stranding on the tail of the pancreas in the left half of the abdomen dependently correlate with serum lipase for pancreatitis. No intrapancreatic fluid collection. No loculated fluid collection. HOSPITAL COURSE: This is a 55-year-old female, who came in as an admission from the GI Clinic due to elevated lipase and elevated LFTs. The patient was admitted for further evaluation and management. GI was consulted. Several imaging studies were performed. Of note, pertinent positives found to have a biliary dyskinesia on HIDA scan. General Surgery was consulted. The patient underwent status post laparoscopic cholecystectomy on 05/17/2020, by General Surgery. The patient did well postoperatively with no complaints. She was started on clear liquid diet, advance to regular and tolerated very well. GI was following and cleared the patient for discharge. Her LFTs improved tremendously. General Surgery evaluated the patient on the day of discharge and also cleared the patient for discharge to home. The patient was doing well, back to normal baseline with no complaints and was tolerating a diet well. On the day of discharge, vital signs were stable, labs reviewed and stable. The patient is seen and evaluated and examined thoroughly on the day of discharge. No other complaints. The patient verbalized understanding and agrees to plan of care to follow up accordingly as an outpatient with primary care physician in 1 week, General Surgery in 10 days and GI in 2-3 weeks. MEDICATIONS: See med reconciliation form. DISPOSITION: Home. CONDITION: Stable. DIET: Heart healthy. In the event of any worsening symptoms, the patient was advised to come back to the ED for further evaluation. Discharge summary took greater than 35 minutes. MD ADRIANA De Paz/MODL /[id number]
== END 2020-05-18 15:25 | disposition home or self-care (01) | DRG 418 ==
LOC: ER 16:15 → ERHOLD 20:15 → MED/SURG2 21:19
PROVIDERS: ADMIT Internal Medicine; ATTEND Internal Medicine
PROC: BF131ZZ Fluoroscopy of Gallbladder and Bile Ducts using Low Osmolar Contrast (ICD-10-PCS; 2020-05-17)
PROC: 0FT44ZZ Resection of Gallbladder, Percutaneous Endoscopic Approach (ICD-10-PCS; principal; 2020-05-17 11:00)
DX: K85.90 Acute pancreatitis without necrosis or infection, unspecified (principal); K80.10 Calculus of gallbladder with chronic cholecystitis without obstruction; Z11.59 Encounter for screening for other viral diseases; I10 Essential (primary) hypertension
CPT/HCPCS: 36415; 74177; 74181; 74300; 76705; 78227; 80053; 80061; 81001; 82150; 83036; 83690; 85025; 88304; 96361; 99284; A9537; C1766; J1100; J1650; J1885; J2001; J2270; J2405; J2543; J2710; J3480; J7030; J7050; J7121; Q9967; U0002